=== PATIENT | male | born 1995 | race Caucasian/White ===

== ENCOUNTER 2019-07-26 11:15 | Emergency (ER) | payer OTHER, SELFPAY ==
[2019-07-26 11:25] VITALS: BP 129/85; PULSE 108; RESP 18; TEMP 36.6; O2SAT 100
--- NOTE | 2019-07-26 11:35 | DI.RAD.S_ITS ---
PROCEDURE: XR HAND LT MIN 3V INDICATIONS: crush injury TECHNIQUE: 3 views of the hand(s) acquired. COMPARISON: None. FINDINGS: Bones: No fractures or dislocations. Carpal bones are normally aligned. No suspicious bony lesions. Soft tissues: No suspicious soft tissue calcifications. Soft tissue swelling of the hand is present. No radiopaque foreign bodies are evident. IMPRESSION: No acute fractures of the left hand. Dictated by: Jayjay Cervantes M.D. on 07/26/2019 at 11:04 Approved by: Jayjay Cervantes M.D. on 07/26/2019 at 11:04
--- NOTE | 2019-07-26 12:11 | ED.GENADULT ---
HPI - General Adult General Chief complaint: Extremity Injury, Upper Stated complaint: left hand injury Time Seen by Provider: 07/26/19 11:47 Source: patient Mode of arrival: Ambulatory Limitations: no limitations History of Present Illness HPI narrative: 23-year-old [id number] male here for evaluation of a crush injury to his left hand. Patient states that approximately 3 days ago he got his hand caught between a log and a pipe. Sustained abrasions to his hand. Had swelling of his hand today which brought him into the emergency department. Has tried some ice at home otherwise no other interventions. Related Data Allergies Allergy/AdvReac Type Severity Reaction Status Date / Time Penicillins Allergy Verified 07/26/19 11:32 Review of Systems Constitutional Constitutional: Denies fever(s) Musculoskeletal Comments: Left hand pain and swelling Integumentary/Breasts Comments: Abrasions to the back of the left an Neurologic Comments: Some tingling to the tips of his index and middle fingers Hematologic/Lymphatic Hematologic/Lymphatic: Denies easy bleeding and Denies easy bruising Patient History Medical History Healthy adult (Acute) Social History Smoking Status: Current every day smoker Smoking Status: Current every day smoker alcohol intake frequency: 0-2 drinks per day Substance Use Type: does not use Exam Initial Vital Signs Initial Vital Signs: Vital Signs Temperature 97.9 F 07/26/19 11:25 Pulse Rate 108 H 07/26/19 11:25 Respiratory Rate 18 07/26/19 11:25 Blood Pressure 129/85 07/26/19 11:25 Pulse Oximetry 100 07/26/19 11:25 Const General: cooperative, healthy appearing and comfortable Cardio Pulses: radial pulses present on the left Skin Other: Patient with multiple superficial abrasions to the back of the left hand mostly located on the radial aspect. Neuro Sensory Exam: no sensory deficits noted Extrem Other: Patient with swelling to the dorsum of the left hand radial aspect and also bruising over the thenar eminence of the left hand Psych Appearance: grossly normal and well kempt Course Orders Ordered: ED Orders 07/26/19 11:35 XR hand LT min 3V Stat Vital Signs Vital signs: Vital Signs - 8 hr 07/26/19 11:25 Temperature 97.9 F Pulse Rate 108 H Respiratory Rate 18 Blood Pressure 129/85 Pulse Oximetry 100 Medical Decision Making Imaging Data Extremity x-ray #1: Radiologist's Impression: [address] [address] XRay Report Signed Patient: Amy PimentelMR#: [id number] : 1995Acct:[id number] Age/Sex: 23 / MDate of Service: 07/26/19 Loc: ED Accession Number: [id number] Procedure: XR hand LT min 3V Ordering Provider: Godfrey Gomez D.O. PROCEDURE: XR HAND LT MIN 3V INDICATIONS: crush injury TECHNIQUE: 3 views of the hand(s) acquired. COMPARISON: None. FINDINGS: Bones: No fractures or dislocations. Carpal bones are normally aligned. No suspicious bony lesions. Soft tissues: No suspicious soft tissue calcifications. Soft tissue swelling of the hand is present. No radiopaque foreign bodies are evident. IMPRESSION: No acute fractures of the left hand. Dictated by: Jayjay Cervantes M.D. on 07/26/2019 at 11:04 Approved by: Jayjay Cervantes M.D. on 07/26/2019 at 11:04 [facility] Narrative Medical decision making narrative: No fractures were noted on the x-ray. The abrasions knee no intervention in the ER. Patient is neurovascularly intact. We did discuss the use of elevation and ice. And also anti-inflammatories. Patient was given return precautions and follow-up instructions he expressed understanding and agreement. Discharge Plan Departure Patient Disposition: Home Clinical Impression: Abrasion of skin Contusion of hand, left Qualifiers: Encounter type: initial encounter Qualified Code(s): S60.222A - Contusion of left hand, initial encounter Discharge Date/Time: 07/26/19 12:22 Instructions: How To Perform RICE (Rest, Ice, Compress, Elevate) Activity Restrictions/Additional Instructions: There were no fractures noted on the x-ray. He the abrasions on your and will heal on their own. You can wash your hands like normal. I do recommend that you keep your hand elevated and use ice. Contact your primary provider for follow-up
== END 2019-07-26 12:22 | disposition home or self-care (01) ==
PROVIDERS: Emergency Provider Emergency Medicine
DX: S60.222A Contusion of left hand, initial encounter (principal); S60.512A Abrasion of left hand, initial encounter; W23.0XXA Caught, crushed, jammed, or pinched between moving objects, initial encounter
CPT/HCPCS: 73130; 99283